=== PATIENT | male | born 1970 | race Caucasian/White ===

== ENCOUNTER 2017-12-10 11:04 | Outpatient (CLI) | payer BC ==
--- NOTE | 2017-12-10 13:45 | MRI ---
MRI LUMBAR SPINE: HISTORY: Low back pain radiating down right leg right side. FINDINGS: Noncontrast-enhanced MRI images lumbar spine obtained on 12/10/17. Comparison is made to previous exa m from 01/01/16. Multiplanar, multisequence noncontrast-enhanced MRI images of lumbar spine demonstrate no significant interval changes seen since the previous comparison exam. T12-L1, L1-2: Unremarkable. L2-3: Minimal disk desiccation is seen. Minimal facet hypertrophy is seen. No significant degree o f central or neural foraminal narrowing is seen. L3-4: There is minimal facet hypertrophy. No significant degree of central or neural foraminal narr owing is seen. L4-5: There is minimal broad-based disk bulge and facet hypertrophy. No significant degree of centr al or neural foraminal narrowing is seen. Findings have not significantly changed since the previous comparison MRI. L5-S1: Disk desiccation is seen. There is a broad-based central disk bulge with bilateral facet hyp ertrophy. This results in mild to moderate central and lateral recess stenosis not significantly mike nged since the previous comparison exam. Mild bilateral neural foraminal narrowing is seen due to th e facet hypertrophy as well as the broad-based disk bulge extending into the neural foramen. Finding s not significantly changed since the previous comparison MRI. There are several annular fissures se en along the posterior aspect of the annulus fibrosis. 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 This Tarlov cyst does appear to compress th e thecal sac centrally as well as the right S3 and more distal sacral nerve roots. POS: ZEB
== END 2017-12-10 11:05 | disposition home or self-care (01) ==
LOC: TBSIIMAG 11:04
PROVIDERS: ATTEND Neurological Surgery
DX: M54.16 Radiculopathy, lumbar region (principal)
CPT/HCPCS: 72148

== ENCOUNTER 2018-01-06 05:59 | Day surgery (SDC) | payer BC ==
[2018-01-05 14:07] VITALS: BMI 34.0
[2018-01-06] MEDS ORDERED: Sodium Chloride 0.9% 10 ML ONE (06:24)
[2018-01-06] MEDS ORDERED: CEFAZOLIN/Water 2 GM/20 ML SYRINGE ONE (06:45)
[2018-01-06 06:48] LABS: #Basophils 0.1 thou/uL (0.0-0.2); #Eosinphils 0.3 thou/uL (0.0-0.7); #Lymphocytes 2.5 thou/uL (1.20-3.40); #Monocytes 0.5 thou/uL (0.11-0.59); #Neutrophils 2.7 thou/uL (1.40-6.50); %Basophils 1.3 % (0.0-1.0); %Eosinophils 4.2 % (0.0-10.0); %Lymphocytes 41.6 % (21.0-51.0); Hemoglobin 14.1 g/dL (14.0-18.0); Mean Corpuscular Hemoglobin 29.7 pg (27.0-31.0); Mean Corpuscular Volume 87.6 fl (80.0-94.0); Mean Platelet Volume 6.3 fL (7.4-10.4); Platelet Count 265 thou/uL (130-400); RBC Distribution Width 11.9 % (11.5-14.5); Red Blood Cell (RBC) Count 4.74 mill/uL (4.70-6.10); White Blood Cell (WBC) Count 6.1 thou/uL (4.8-10.8)
[2018-01-06 07:23] LABS: Anion Gap 12 mmol/L (10-20); BUN (Urea Nitrogen) 18 mg/dL (8.9-20.6); Calc. Creatinine Clearance 138 mL/min (70-130); Calcium 9.3 mg/dL (7.8-10.44); Carbon Dioxide 24 mmol/L (22-29); Chloride 108 mmol/L (98-107); Estimated GFR-MDRD 69; Glucose 98 mg/dL (70-105); Potassium 3.8 mmol/L (3.5-5.1); Sodium 140 mmol/L (136-145)
[2018-01-06] MEDS ORDERED: Fentanyl 100 MCG/2 ML VIAL ONE ×3 (07:31→09:37)
[2018-01-06] MEDS ORDERED: Midazolam HCl 2 mg/2 ml Vial ONE (07:31)
--- NOTE | 2018-01-06 09:52 | OP ---
DATE OF PROCEDURE: 01/06/2018 SURGEON: Amadou De La Rosa M.D. [employer]IN BOX COLLECTOR: Janett Gibbs PROCEDURE: Left L5-S1 laminectomy, facetectomy, foraminotomy, interbody arthrodesis, intravertebral biomechanical device, local morselized autograft, demineralized bone matrix, posterior lateral arthro desis, and pedicle screw instrumentation L5-S1. PROCEDURE IN DETAIL: The patient was brought into the operating room, intubated. He was rolled in t he prone position on gel-filled chest rolls. Incision made exposing L5 and S1 bilaterally and our le pete was confirmed by x-ray. We performed a complete left-sided L5-S1 laminectomy, facetectomy, and f oraminotomy, identified the left L5 and left S1 and completely decompressed the neural elements. The disc itself was incised and debrided in multiple fragments and the bony endplates decorticated for t he purpose of arthrodesis. Appropriately sized intravertebral biomechanical PEEK device was brought into the field, filled with demineralized bone matrix and local morselized autograft, and tapped into place securely at L5-S1. Next, pedicle screws were placed at left L5 and left S1 using lateral fluo roscopic guidance and the positioning was confirmed with x-ray. Nate was secured between the screws, connected by nuts which were final tightened. The wound was then extensively irrigated, immaculate h emostasis was secured. A combination of demineralized bone matrix and local morselized autograft was laid over the right laminar and posterolateral surfaces for the purpose of arthrodesis. Vancomycin powder was applied and the wound was then closed in anatomic layers.
[2018-01-06] MEDS ORDERED: HYDROcodone/Acetaminophen 5/325 mg Tablet ONE (12:08)
[2018-01-06] MEDS ORDERED: Ondansetron HCl/PF 4 MG/2 ML Vial ONE ×2 (13:39→15:28)
[2018-01-06] MEDS ORDERED: Promethazine HCl 25 MG/ML VIAL ONE (13:39)
[2018-01-06] MEDS ORDERED: Ketorolac Tromethamine 30 MG/ML VIAL ONE (15:28)
[2018-01-06] MEDS ORDERED: Dexamethasone 20 MG/5 ML VIAL ONE (15:28)
[2018-01-06] MEDS ORDERED: Lidocaine 1% PF 5 ML VIAL ONE (15:28)
[2018-01-06] MEDS ORDERED: diphenhydrAMINE 50 MG/ML VIAL ONE (15:28)
[2018-01-06] MEDS ORDERED: PROPOFOL 200 MG/20 ML VIAL ONE (15:28)
[2018-01-06] MEDS ORDERED: PHENYLEPHRINE-NS 100 MCG/ML 10 ML SYRINGE ONE (15:28)
[2018-01-06] MEDS ORDERED: Glycopyrrolate 0.2 MG/ML 5 ML SYRINGE ONE (15:28)
--- NOTE | 2018-01-06 21:17 | EKG ---
Test Reason : PREOP Blood Pressure : / mmHG Vent. Rate : 064 BPM Atrial Rate : 064 BPM P-R Int : 192 ms QRS Dur : 108 ms QT Int : 410 ms P-R-T Axes : 016 -04 009 degrees QTc Int : 422 ms Normal sinus rhythm Normal ECG No previous ECGs available Confirmed by GLADYS LOMBARDI ([id number]) on 01/06/2018 9:16:32 PM Referred By: JEROME Confirmed By:GLADYS LOMBARDI
== END 2018-01-06 13:08 | disposition home or self-care (01) ==
LOC: SDC 05:59
PROVIDERS: ATTEND Neurological Surgery
PROC: 0SG30AJ Fusion of Lumbosacral Joint with Interbody Fusion Device, Posterior Approach, Anterior Column, Open Approach (ICD-10-PCS; principal; 2018-01-06)
DX: M54.16 Radiculopathy, lumbar region (principal); Z98.890 Other specified postprocedural states
CPT/HCPCS: 76001; 80048; 85025; 93005; 93010; 96374; A4216; C1713; C1768; J0131; J1100; J1200; J1885; J2001; J2250; J2270; J2405; J2550; J2704; J3010; J3370; J3490

== ENCOUNTER 2018-01-21 10:56 | Outpatient (CLI) | payer BC ==
--- NOTE | 2018-01-21 13:06 | RAD ---
LUMBAR SPINE TWO VIEWS: History: Lumbar radicular pain. FINDINGS: Lumbar vertebrae maintain normal height and alignment. Pedicle screws are seen on the left transfixin g L5 and S1 and there is an interbody disc implant at L5-S1 which appears adequately positioned. No e vidence of listhesis. Mild degenerative spurring is seen through the lumbar vertebrae. The other disc spaces are maintained. IMPRESSION: Post-operative changes at L5-S1. POS: ZEB
== END 2018-01-21 10:57 | disposition home or self-care (01) ==
LOC: TBSIIMAG 10:56
PROVIDERS: ATTEND Physician Assistant
DX: M54.16 Radiculopathy, lumbar region (principal); Z98.1 Arthrodesis status
CPT/HCPCS: 72100

== ENCOUNTER 2018-03-09 13:47 | Outpatient (CLI) | payer BC ==
--- NOTE | 2018-03-09 14:14 | RAD ---
TWO VIEWS OF THE LUMBAR SPINE: INDICATION: History of intervertebral disk degeneration. COMPARISON: Prior exam dated 01/21/18. FINDINGS: The posterolateral spinal instrumentation at L5-S1 is not appreciably changed from the comparison exa m. Multilevel spondylosis is similar. IMPRESSION: Stable postoperative lumbar spine. POS: ZEB
== END 2018-03-09 13:48 | disposition home or self-care (01) ==
LOC: TBSIIMAG 13:47
PROVIDERS: ATTEND Neurological Surgery
DX: M51.36 Other intervertebral disc degeneration, lumbar region (principal); Z98.890 Other specified postprocedural states
CPT/HCPCS: 72100

== ENCOUNTER 2018-06-17 15:55 | Outpatient (CLI) | payer BC ==
--- NOTE | 2018-06-17 17:14 | RAD ---
TWO VIEWS OF THE LUMBOSACRAL SPINE 06/17/18 COMPARISON: 03/09/18 HISTORY: Lumbar radiculopathy. Followup surgery. FINDINGS: Two views of the lumbosacral spine shows the patient to be status post posterior fusion of L5 and S1 with left sided pedicle screws. A disc spacer is seen in the intervening disc space. No perihardware lucency is seen. The vertebral bodies demonstrate normal alignment without subluxation. IMPRESSION: Postsurgical changes of the lumbar spine without evidence of complication. POS: ZEB
--- NOTE | 2018-06-17 17:18 | RAD ---
THREE VIEWS OF THE CERVICAL SPINE 06/17/18 COMPARISON: 03/28/16. HISTORY: Cervical radiculopathy. FINDINGS: Three views of the cervical spine shows the patient to be status post anterior fusion of C5 through C 7 with a plate and screws. Disc spacers are seen in the intervening disc spaces. No perihardware luce ncy is seen. The vertebral bodies demonstrate normal alignment without subluxation. IMPRESSION: Status post fusion of the lower cervical spine without evidence of complication. POS: ZEB
== END 2018-06-17 15:56 | disposition home or self-care (01) ==
LOC: TBSIIMAG 15:55
PROVIDERS: ATTEND Neurological Surgery
DX: M54.16 Radiculopathy, lumbar region (principal); M54.12 Radiculopathy, cervical region; Z98.890 Other specified postprocedural states; Z98.1 Arthrodesis status
CPT/HCPCS: 72040; 72100